=== PATIENT | female | born 1980 | race Caucasian/White ===

== ENCOUNTER → 2016-03-23 | Outpatient (CLI) | payer OTHER | LOC: FIMAGING 13:43 | PROVIDERS: ATTEND Obstetrics & Gynecology | DX: Z34.93 Encounter for supervision of normal pregnancy, unspecified, third trimester (principal); Z3A.36 36 weeks gestation of pregnancy; J45.909 Unspecified asthma, uncomplicated; Z98.891 History of uterine scar from previous surgery ==

== ENCOUNTER 2016-04-14 12:42 | Inpatient (IN) | payer OTHER ==
[2016-04-14] MEDS ORDERED: LR 1,000 ML IV PRN (15:12)
[2016-04-14] MEDS ORDERED: TERBUTALINE SULFATE 1 MG/ML VIAL IV PRN (15:12)
[2016-04-14] MEDS ORDERED: OXYTOCIN/RINGERS LACTATE 1,000 ML IV PRN (15:12)
[2016-04-14 16:13] LABS: % IMMATURE GRANULYOCYTES 1.3 % (0.0-1.1); ABSOLUTE IMMATURE GRANULOCYTES 0.16 10^3/uL (0.00-0.10); ADD DIFF? NO; ADD MORPH? NO; ADD SCAN? NO; ATYPICAL LYMPHOCYTE FLAG 0 (0-99); FRAGMENT RBC FLAG 20 (0-99); HEMATOCRIT 35.1 % (38.0-47.0); HEMOGLOBIN 11.8 g/dL (12.6-16.3); LEFT SHIFT FLG 10 (0-99); LIPEMIA HEMOLYSIS FLAG 80 (0-99); MEAN CELL HEMOGLOBIN 26.4 pg (27.9-34.1); MEAN CELL HEMOGLOBIN CONCENTR. 33.6 g/dL (32.4-36.7); MEAN CELL VOLUME 78.5 fL (81.5-99.8); MEAN PLATELET VOLUME 11.7 fL (8.7-11.7); PLATELET CLUMPS FLAG 0 (0-99); PLATELET COUNT 305 10^3/uL (150-400); RED BLOOD CELL COUNT 4.47 10^6/uL (4.18-5.33); RED CELL DISTRIBUTION WIDTH 14.1 % (11.5-15.2)
--- NOTE | 2016-04-14 18:52 | PDGENHP ---
History and Physical - Chief Complaint contractions - History of Present Illness at 39w1d c/b prior C/S at term for breech, > 1 yr ago Began shiva this AM Was 3 cm in clinic. Admitted to obs to L&D, after 2 hrs had ongoing painful contractions and progressed to 3.5 cm. Decision was made to admit to L&D. No VB , LOF. Active baby. Vertex History Information - Allergies/Home Medication List Allergies/Adverse Reactions: No Known Allergies Allergy (Unverified 04/14/16 13:41) Home Medications: Albuterol [Ventolin Hfa Inhaler] 200 puffs IH PRN PRN 04/14/16 [Last Taken 04/14 07:00] Fluticasone Hfa 110 Mcg [Flovent 110 MCG Hfa MDI (*)] 1 puffs IH BID 04/14/16 [ Last Taken 04/13/16 21:00] Montelukast Sodium [Singulair 10 mg (*)] 10 mg PO DAILY@1800 04/14/16 [Last Taken 04/13/16 21:00] Vit27&Calcium/Iron/FA [ Rx 1 Tablet (RX)] 1 each PO DAILY 04/14 [Last Taken 04/13/16 21:00] I have personally reviewed and updated: family history, medical history, social history, surgical history - Past Medical History asthma - Surgical History Additional surgical history: 2012 - Family History Positive for: non-pertinent - Social History Smoking Status: Never smoked Alcohol Use: None Drug Use: None Review of Systems ROS: 10pt was reviewed & negative except for what was stated in HPI & below Physical Exam 126/75 88 36.8 FHR baseline 130, mod jennifer, + accel, no decel Ctx every 5-7 min Constitutional: no apparent distress Ears, Nose, Mouth, Throat: moist mucous membranes Cardiovascular: regular rate and rhythym Respiratory: no respiratory distress Gastrointestinal: soft, non-tender abdomen, other (gravid) Skin: warm, normal color Musculoskeletal: full muscle strength Neurologic: AAOx3 Psychiatric: interacting appropriately Lab Data & Imaging Review 04/14/16 15:45 WBC 12.77 10^3/uL (3.80-9.50) H 04/14/16 15:45 RBC 4.47 10^6/uL (4.18-5.33) 04/14/16 15:45 Hgb 11.8 g/dL (12.6-16.3) L 04/14/16 15:45 Hct 35.1 % (38.0-47.0) L 04/14/16 15:45 MCV 78.5 fL (81.5-99.8) L 04/14/16 15:45 MCH 26.4 pg (27.9-34.1) L 04/14/16 15:45 MCHC 33.6 g/dL (32.4-36.7) 04/14/16 15:45 RDW 14.1 % (11.5-15.2) 04/14/16 15:45 Plt Count 305 10^3/uL (150-400) 04/14/16 15:45 MPV 11.7 fL (8.7-11.7) 04/14/16 15:45 Neut % (Auto) 74.0 % (39.3-74.2) 04/14/16 15:45 Lymph % (Auto) 19.3 % (15.0-45.0) 04/14/16 15:45 Izard % (Auto) 3.9 % (4.5-13.0) L 04/14/16 15:45 Eos % (Auto) 1.3 % (0.6-7.6) 04/14/16 15:45 Baso % (Auto) 0.2 % (0.3-1.7) L 04/14/16 15:45 Nucleat RBC Rel Count 0.0 % (0.0-0.2) 04/14/16 15:45 Absolute Neuts (auto) 9.46 10^3/uL (1.70-6.50) H 04/14/16 15:45 Absolute Lymphs (auto) 2.46 10^3/uL (1.00-3.00) 04/14/16 15:45 Absolute Monos (auto) 0.50 10^3/uL (0.30-0.80) 04/14/16 15:45 Absolute Eos (auto) 0.16 10^3/uL (0.03-0.40) 04/14/16 15:45 Absolute Basos (auto) 0.03 10^3/uL (0.02-0.10) 04/14/16 15:45 Absolute Nucleated RBC 0.00 10^3/uL (0-0.01) 04/14/16 15:45 Immature Gran % 1.3 % (0.0-1.1) H 04/14/16 15:45 Immature Gran # 0.16 10^3/uL (0.00-0.10) H 04/14/16 15:45 Patient ABO/Rh A POSITIVE 04/14/16 15:45 Antibody Screen NEGATIVE 04/14/16 15:45 Assessment & Plan Assessment: at 39w1d Early labor Change from 3 to 3.5 cm Shiva FHR reassuring Vertex TOLAC Gbs neg Plan: Admit to L&D for labor No abx indicated Routine intrapartum management Continuous monitoring Signed consent for : risk of uterine rupture, which could result in catastrophic outcome for mom and baby. All questions answered. She desires to continue with TOLAC
[2016-04-14] MEDS ORDERED: AMMONIA AROMATIC 1 EACH AMP IH ONE (19:26)
[2016-04-14] MEDS ORDERED: TERBUTALINE SULFATE 1 MG/ML VIAL ONE (19:26)
[2016-04-14] MEDS ORDERED: LIDOCAINE 1% 30 ML SDV ONE (19:26)
[2016-04-14] MEDS ORDERED: MISOPROSTOL 200 MCG TAB ONE (19:27)
[2016-04-14] MEDS ORDERED: OXYTOCIN 10 UNIT/ML VIAL ONE (19:27)
[2016-04-14] MEDS ORDERED: PROMETHAZINE HCL 25 MG TAB PO ONE (21:55)
--- NOTE | 2016-04-14 22:01 | OBPROG ---
OBG Progress Note Assessment/Plan: Assessment: 39w1d TOLAC Early labor, making slow change Pt tired FHR reassuring Plan: Morphine sleep overnight IM morphine 8 mg, IV 4 mg 25 mg po phenergan (IV/IM not available currently) Continuous monitoring Reassess cervix in AM or earlier prn 04/14/16 21:59 Subjective: Contractions getting a lot more painful. Using nitrous, helping a lot. More bloody show. No LOF. Objective: 04/14/16 15:45 Patient ABO/Rh A POSITIVE 04/14/16 15:45 130/69, 94, 18, 36.2 Gen: NAD Abd: soft, nontender Ext: no edema - SVE Dilation (cm): 4 Effacement (%): 50 Station: -2 Current Contraction Pattern: Regular FHR (bpm): 130 FHR Pattern Variability: Moderate FHR Category: 1 Membranes: Intact ICD10 Worksheet Patient Problems: Problems Problem Status Onset History of delivery Acute Normal labor Acute - ICD10 Problem Qualifiers (1) Normal labor (2) History of delivery
[2016-04-14] MEDS ORDERED: BUPIVACAINE 0.25% 30 ML SDV ONE (23:31)
[2016-04-14] MEDS ORDERED: fentaNYL 2MCG/ML/BUP 0.1% RTU 100 ML BAG EP ONE (23:31)
[2016-04-14] MEDS ORDERED: PHENYLEPHRINE HCL 100 MCG/ML SYR ONE (23:31)
[2016-04-15] MEDS ORDERED: ONDANSETRON 4 MG/2 ML VIAL IVP PRN (00:25)
[2016-04-15] MEDS ORDERED: PHENYLEPHRINE HCL 100 MCG/ML SYR IVP PRN (00:25)
[2016-04-15] MEDS ORDERED: NALOXONE HCL 0.4 MG/ML INJ IVP PRN (00:25)
[2016-04-15] MEDS ORDERED: fentaNYL 2MCG/ML/BUP 0.1% RTU 100 ML EP SCH (00:30)
[2016-04-15] MEDS ORDERED: LR 500 ML IV SCH (00:30)
[2016-04-15 00:55] LABS: CORD BLOOD PCO2 56.4 mmHg (37-60)
[2016-04-15 01:03] LABS: PH VENOUS CORD BLOOD 7.32 (7.20-7.42)
--- NOTE | 2016-04-15 01:18 | OBPROC ---
- Labor and Delivery Onset of Contractions Date: 04/13/16 Onset of Contractions Time: 17:00 Onset of Contractions Type: Spontaneous Rupture of Membranes Date: 04/14/16 Rupture of Membranes Type: Spontaneous Amniotic Fluid Color: Clear Delivery Type: Spontaneous () Placenta Delivery Date: 04/15/16 Episiotomy/Laceration: 2nd Degree Repair: 3-0 EBL: 350 Complications: Nuchal Cord, Other (Specify) (body cord) Cord Gases: Cord Gases Cord Blood PCO2 56.4 mmHg (37-60) 04/15/16 00:40 Cord Base Excess REJ 04/15/16 00:40 Cord ABG pH 7.20 (7.10-7.37) 04/15/16 00:40 Cord VBG pH 7.32 (7.20-7.42) 04/15/16 00:40 - Medications Labor Augmentation/Induction Meds Used: None Anesthesia: Epidural - Info Infant A Delivery Date: 04/15/16 Delivery Time: 00:35 Sex of : Male Score (1 Min): 8 Score (5 Min): 8
[2016-04-15] MEDS ORDERED: HYDROCORTISONE 0.5% CREAM TP PRN (01:27)
[2016-04-15] MEDS ORDERED: ACETAMINOPHEN 325 MG TAB PO PRN (01:27)
[2016-04-15] MEDS ORDERED: SIMETHICONE 80 MG TAB CHEW PO PRN (01:27)
[2016-04-15] MEDS: IBUPROFEN 600 MG TAB PO PRN ×4 (02:21→19:56)
[2016-04-15] MEDS: HYDROCODONE/APAP 5/325 TAB PO PRN ×4 (07:23→22:26)
[2016-04-15 08:19] VITALS: O2SAT 95
[2016-04-15] MEDS: DOCUSATE SODIUM 100 MG CAP PO PRN ×2 (08:23→19:56)
[2016-04-16] MEDS: IBUPROFEN 600 MG TAB PO PRN ×4 (03:08→22:44)
[2016-04-16] MEDS: DOCUSATE SODIUM 100 MG CAP PO PRN ×2 (08:50→20:29)
[2016-04-16 09:20] VITALS: RESP 18
--- NOTE | 2016-04-16 12:28 | SOAPPROG ---
SOAP Progress Note Assessment/Plan: Assessment: PPD#1 s/p at 39w1d Recovering well going well Rh pos, Rub imm, s/p Tdap and flu vax Desires to stay until PPD#2 Plan: Routine pp snf tomorrow 04/14/16 21:59 04/16/16 12:25 Subjective: Slept well. This baby is a lot more relaxed than her first, he self soothes and isn't fussy so far. He is interested in , but then falls asleep after latching, they are working on it. No heavy bleeding. Perineal pain very tolerable. They want to stay here for another night, parents in law are in town looking after their other child. Objective: Vital Signs Temp Pulse Resp BP Pulse Ox 36.2 C 102 H 18 138/68 H 95 04/16/16 09:18 04/16/16 09:18 04/16/16 09:18 04/16/16 09:18 04/15/16 08:18 Laboratory Results 04/14/16 15:45 04/15/16 04/16/16 04/17/16 04:59 05:59 05:59 Output Total Balance Gen: ambulating, NAD Breasts: soft Resp: unlabored CV: reg rate Abd: soft, moderately distended, uterus firm below U Meat Lugger: deferred Ext: minimal edema ICD10 Worksheet Patient Problems: Problems Problem Status Onset History of delivery Acute Normal labor Acute - ICD10 Problem Qualifiers (1) Normal labor (2) History of delivery
[2016-04-16 20:40] VITALS: TEMP 98.4
[2016-04-17] MEDS: HYDROCODONE/APAP 5/325 TAB PO PRN ×2 (01:52→09:19)
[2016-04-17] MEDS: IBUPROFEN 600 MG TAB PO PRN ×2 (04:39→11:08)
--- NOTE | 2016-04-17 07:57 | OBGCSDC ---
General Delivery Information - General Info : 2 Para: 2 Delivery Date: 04/15/16 Delivery Time: 00:35 Delivery Physician/CNM: Cecily Meza Admission Date: 04/14/16 Labs: Patient ABO/Rh A POSITIVE 04/14/16 15:45 Hct 35.1 % (38.0-47.0) L 04/14/16 15:45 - [place] Info A Sex of : Male Score (1 Min): 8 Score (5 Min): 8 Vaginal - Diagnosis IUP (Weeks): 39 1/7 Labor: Spontaneous Rupture of Membranes Type: Spontaneous Amniotic Fluid Color: Clear Laceration: 2nd Degree Repair: 3-0 Complications: Nuchal Cord, Other (Specify) (body cord) - Operations/Procedures Delivery Type: Spontaneous () Anesthesia: Epidural - Delivery EBL: 350 Anesthesia: Epidural Discharge Information - Discharge Information Discharge Medications: Ibuprofen, Vitamins, Vicodin Condition: Good Instruction/Follow Up: Six Weeks Discharge Physician/CNM: Nell Lopez Discharge Date: 04/17/16 Dictated: No
[2016-04-17] MEDS: DOCUSATE SODIUM 100 MG CAP PO PRN (09:19)
[2016-04-17 10:03] VITALS: BP 116/66; PULSE 85
== END 2016-04-17 11:55 | disposition home or self-care (01) | DRG 775 ==
LOC: OBSVTOIN 12:42 → FLD 12:42
PROVIDERS: ADMIT Obstetrics & Gynecology; ATTEND Obstetrics & Gynecology
PROC: 0KQM0ZZ Repair Perineum Muscle, Open Approach (ICD-10-PCS; principal; 2016-04-15)
PROC: 10E0XZZ Delivery of Products of Conception, External Approach (ICD-10-PCS; principal; 2016-04-15)
DX: O69.89X0 Labor and delivery complicated by other cord complications, not applicable or unspecified (principal); O99.513 Diseases of the respiratory system complicating pregnancy, third trimester; O34.219 Maternal care for unspecified type scar from previous cesarean delivery; J45.909 Unspecified asthma, uncomplicated; Z3A.39 39 weeks gestation of pregnancy; Z37.0 Single live birth
CPT/HCPCS: J2370; J2590; J3105